=== PATIENT | female | born 1975 | race Caucasian/White ===

== ENCOUNTER 2022-06-11 06:08 | Inpatient (IN) | payer SELFPAY ==
[2022-06-11] MEDS ORDERED: Morphine 4 MG/ML VIAL ONE ×3 (06:50→18:50)
[2022-06-11] MEDS ORDERED: Ondansetron PF 4 MG/2 ML Vial ONE (06:51)
[2022-06-11 07:07] LABS: #Basophils 0.1 10x3/uL (0.0-0.2); #Monocytes 0.6 10x3/uL (0.0-1.1); #Neutrophils 12.5 10x3/uL (1.5-8.4); %Basophils 0.5 % (0.0-2.0); %Eosinophils 0.1 % (0.0-6.0); %Lymphocytes 7.6 % (18.0-47.0); %Monocytes 4.5 % (0.0-10.0); Hemoglobin 15.8 g/dL (12.0-15.5); Mean Corpuscular HGB CONC 35.3 g/dL (32.0-36.0); Mean Corpuscular Hemoglobin 36.1 pg (27.0-33.0); Mean Corpuscular Volume 102.1 fl (81.6-98.3); Mean Platelet Volume 9.1 fl (7.4-10.4); Platelet Count 347 10x3/uL (150-450); RBC Distribution Width 12.8 % (11.5-14.5); Red Blood Cell (RBC) Count 4.38 10x6/uL (3.90-5.03); White Blood Cell (WBC) Count 14.4 10x3/uL (3.5-10.5)
[2022-06-11 07:21] LABS: ALT (SGPT) 26 U/L (8-55); AST (SGOT) 31 U/L (5-34); Albumin 4.3 g/dL (3.5-5.0); Alkaline Phosphatase 101 U/L (40-110); Anion Gap 20 mmol/L (10-20); BUN (Urea Nitrogen) 9 mg/dL (7.0-18.7); Bilirubin, Total 0.9 mg/dL (0.2-1.2); Calc. Creatinine Clearance 0 mL/min (70-130); Calcium 9.2 mg/dL (7.8-10.44); Carbon Dioxide 19 mmol/L (22-29); Chloride 99 mmol/L (98-107); Estimated GFR 76; Globulin 3.1 g/dL (2.4-3.5); Glucose 141 mg/dL (70-105); Lipase 221 U/L (8-78); Potassium 3.6 mmol/L (3.5-5.1); Protein, Total 7.4 g/dL (6.0-8.3); Sodium 134 mmol/L (136-145)
[2022-06-11] MEDS ORDERED: Piperacillin/Tazobactam 4.5 GM VIAL ONE (08:06)
[2022-06-11 09:18] LABS: Bilirubin Neg (Negative); Blood, Urine 25 (Negative); Clarity Clear (Clear); Glucose, Urine (Dipstick) Normal (Negative); Ketone, Urine 50 mg/dL (Negative); Leukocyte 25 (Negative); Nitrite Negative (Negative); Protein, Urine (Dipstick) 15 mg/dl (Neg-Trace); Specific Gravity, Urine 1.005 (1.005-1.030)
[2022-06-11 09:29] LABS: Bacteria/HPF 1+ HPF (None Seen); Squamous Epithelial 0-3 HPF (0-3); WBC/HPF 0-3 HPF (0-3)
[2022-06-11] MEDS ORDERED: Iopamidol 300 61% 100 ML VIAL FS ONE (14:29)
[2022-06-11] MEDS ORDERED: Morphine 4 MG/ML VIAL SLOW IVP PRN (18:32)
[2022-06-11] MEDS ORDERED: Morphine 2 MG/ML VIAL SLOW IVP PRN (18:32)
[2022-06-11] MEDS ORDERED: Nicotine 21 MG PATCH TD PRN (19:10)
[2022-06-11] MEDS ORDERED: Acetaminophen 650 MG Suppository PR PRN (19:11)
[2022-06-11] MEDS ORDERED: Ondansetron ODT 4 MG TAB PO PRN (19:11)
[2022-06-11] MEDS ORDERED: Acetaminophen 325 MG TAB PO PRN (19:11)
[2022-06-11] MEDS ORDERED: Ondansetron PF 4 MG/2 ML Vial IVP PRN (19:11)
[2022-06-11] MEDS ORDERED: Electrolyte Replacement Protocol 1 EACH FS PRN (19:15)
[2022-06-11] MEDS ORDERED: Piperacillin/Tazobactam 4.5 GM in Sodium Chloride 0.9% 100 ML IVPB SCH (22:00)
[2022-06-11] MEDS ORDERED: Famotidine/PF 20 mg/2ml Vial SLOW IVP SCH (22:15)
[2022-06-11] MEDS ORDERED: Piperacillin/Tazobactam 3.375 GM in Sodium Chloride 0.9% 100 ML IVPB SCH (23:00)
[2022-06-11] MEDS ORDERED: Famotidine/PF 20 mg/2ml Vial ONE (23:30)
[2022-06-12] MEDS ORDERED: Piperacillin/Tazobactam 3.375 GM VIAL ONE ×2 (00:59→04:38)
[2022-06-12] MEDS: Sodium Chloride 0.9% 1,000 ML IV SCH ×2 (01:50→06:30)
[2022-06-12] MEDS ORDERED: Piperacillin/Tazobactam 3.375 GM in Sodium Chloride 0.9% 100 ML IVPB SCH ×2 (03:00→05:00)
[2022-06-12] MEDS ORDERED: Morphine 4 MG/ML VIAL ONE ×2 (03:55→09:27)
[2022-06-12 04:40] LABS: #Eosinphils 0.1 10x3/uL (0.0-0.5); #Monocytes 0.8 10x3/uL (0.0-1.1); #Neutrophils 4.2 10x3/uL (1.5-8.4); %Basophils 0.6 % (0.0-2.0); %Eosinophils 0.9 % (0.0-6.0); %Lymphocytes 21.1 % (18.0-47.0); %Monocytes 11.7 % (0.0-10.0); %Neutrophils 65.4 % (40.0-75.0); Hemoglobin 12.9 g/dL (12.0-15.5); Mean Corpuscular HGB CONC 34.4 g/dL (32.0-36.0); Mean Corpuscular Hemoglobin 35.6 pg (27.0-33.0); Mean Corpuscular Volume 103.6 fl (81.6-98.3); Mean Platelet Volume 9.2 fl (7.4-10.4); Platelet Count 258 10x3/uL (150-450); RBC Distribution Width 12.6 % (11.5-14.5); Red Blood Cell (RBC) Count 3.62 10x6/uL (3.90-5.03); White Blood Cell (WBC) Count 6.5 10x3/uL (3.5-10.5)
[2022-06-12 04:51] LABS: ALT (SGPT) 15 U/L (8-55); AST (SGOT) 15 U/L (5-34); Albumin 3.4 g/dL (3.5-5.0); Alkaline Phosphatase 61 U/L (40-110); Anion Gap 13 mmol/L (10-20); BUN (Urea Nitrogen) 9 mg/dL (7.0-18.7); Bilirubin, Total 0.9 mg/dL (0.2-1.2); Calc. Creatinine Clearance 0 mL/min (70-130); Calcium 8.1 mg/dL (7.8-10.44); Carbon Dioxide 22 mmol/L (22-29); Chloride 102 mmol/L (98-107); Estimated GFR 101; Globulin 2.4 g/dL (2.4-3.5); Glucose 100 mg/dL (70-105); Magnesium 1.7 mg/dL (1.6-2.6); Protein, Total 5.8 g/dL (6.0-8.3); Sodium 133 mmol/L (136-145)
[2022-06-12 05:04] LABS: Lipase Less than 4 U/L (8-78)
[2022-06-12] MEDS ORDERED: Magnesium 2 GM/50 ML BAG (IN WATER) ONE (05:44)
[2022-06-12 05:47] LABS: Magnesium 1.7 mg/dL (1.6-2.6)
[2022-06-12] MEDS ORDERED: Magnesium 2 GM/50 ML(in water) 2 GM in Premix Bag 1 BAG IVPB SCH (06:00)
[2022-06-12 07:16] VITALS: TEMP 98.1; BMI 28.6
[2022-06-12] MEDS ORDERED: Nicotine 14 MG PATCH TD PRN (08:12)
[2022-06-12] MEDS ORDERED: Dextrose 5%-Lactated Ringers 1,000 ML IV SCH (08:15)
[2022-06-12] MEDS ORDERED: PHOS-NAK 1 PKT PACK PO SCH (09:00)
[2022-06-12] MEDS ORDERED: Pantoprazole 40 MG VIAL IVP SCH (09:00)
[2022-06-12] MEDS ORDERED: Famotidine/PF 20 mg/2ml Vial SLOW IVP SCH (09:00)
[2022-06-12] MEDS ORDERED: Pantoprazole 40 MG VIAL ONE (09:27)
[2022-06-12] MEDS ORDERED: Ondansetron PF 4 MG/2 ML Vial ONE (09:27)
[2022-06-12] MEDS ORDERED: Potassium Phosphate 30 MMOL in Sodium Chloride 0.9% 250 ML 250 ML IVPB SCH (09:30)
[2022-06-12 13:26] LABS: Hemoglobin A1c 4.8 % (4.0-6.0)
== END 2022-06-12 10:25 | disposition short-term general hospital (02) | DRG 389 ==
LOC: CSHERS 06:08 → CSHERHOLD 07:30 → CSHERS 06-12 01:45
PROVIDERS: ADMIT Student in an Organized Health Care Education/Training Program; ATTEND Internal Medicine
DX: K56.609 Unspecified intestinal obstruction, unspecified as to partial versus complete obstruction (principal); K57.32 Diverticulitis of large intestine without perforation or abscess without bleeding; F17.210 Nicotine dependence, cigarettes, uncomplicated; Z80.3 Family history of malignant neoplasm of breast; E86.0 Dehydration; E83.42 Hypomagnesemia; E83.39 Other disorders of phosphorus metabolism; K76.0 Fatty (change of) liver, not elsewhere classified
CPT/HCPCS: 36415; 74177; 76705; 80053; 81003; 81015; 82378; 83036; 83605; 83690; 83735; 84100; 85025; 87040; 87086; 94760; 94762; C9113; J2270; J2405; J2543; J3475; J3490; J7050; Q0162; Q9967; S0028

== ENCOUNTER 2023-02-24 12:51 | Outpatient (CLI) | payer OTHER | END 2023-02-24 12:52 | disposition home or self-care (01) | LOC: CSHRAD 12:51 | PROVIDERS: ATTEND Internal Medicine Hematology & Oncology | DX: Z01.818 Encounter for other preprocedural examination (principal); C18.3 Malignant neoplasm of hepatic flexure; D50.0 Iron deficiency anemia secondary to blood loss (chronic) | CPT/HCPCS: 93005; 93010 ==

== ENCOUNTER 2023-03-15 23:11 | Inpatient (IN) | payer MEDICAID, OTHER ==
[~2023-03-15 23:11] MED LIST: Iopamidol 300 61% 100 ML VIAL FS ONE
[2023-03-15] MEDS ORDERED: Ondansetron PF 4 MG/2 ML Vial ONE (23:32)
[2023-03-15] MEDS ORDERED: Morphine 4 MG/ML VIAL ONE (23:32)
[2023-03-15 23:52] LABS: Actual Bicarbonate (HCO3v) 20.3 mEq/L (22-28); Analyzer IN Cardio CS ER; Base Excess 0.2 mEq/L (-2 - +2); Calcium, Ionized (venous) 0.99 mmol/L (1.16-1.32); Chloride (VBG) 102 mmol/L (98-106); Hematocrit-VBG 40 % (36.0-47.0); Hemoglobin (Hb) 13.5 g/dL (11.7-16.0); Puncture Site Other Site; RapidComm Collect By LAB; Sodium 133 mmol/L (133-146); pH (venous) 7.577 (7.32-7.43)
[2023-03-15 23:54] LABS: Hematocrit 33.5 % (34.9-44.5); Hemoglobin 12.1 g/dL (12.0-15.5); Mean Corpuscular HGB CONC 36.1 g/dL (32.0-36.0); Mean Corpuscular Hemoglobin 36.6 pg (27.0-33.0); Mean Corpuscular Volume 101.2 fl (81.6-98.3); Mean Platelet Volume 10.6 fl (7.4-10.4); Platelet Count 142 10x3/uL (150-450); RBC Distribution Width 13.9 % (11.5-14.5); Red Blood Cell (RBC) Count 3.31 10x6/uL (3.90-5.03); White Blood Cell (WBC) Count 29.6 10x3/uL (3.5-10.5)
[2023-03-15 23:55] LABS: MDiff Complete? YES
[2023-03-16] MEDS ORDERED: Cefepime 2 GM VIAL ONE (00:08)
[2023-03-16 00:09] LABS: ALT (SGPT) 235 U/L (8-55); AST (SGOT) 370 U/L (5-34); Albumin 3.1 g/dL (3.5-5.0); Alkaline Phosphatase 1453 U/L (40-110); Anion Gap 17 mmol/L (10-20); BUN (Urea Nitrogen) 8 mg/dL (7.0-18.7); Calc. Creatinine Clearance 0 mL/min (70-130); Calcium 8.3 mg/dL (7.8-10.44); Carbon Dioxide 17 mmol/L (22-29); Chloride 103 mmol/L (98-107); Estimated GFR 108; Globulin 2.6 g/dL (2.4-3.5); Glucose 97 mg/dL (70-105); Magnesium 1.1 mg/dL (1.6-2.6); Potassium 2.9 mmol/L (3.5-5.1); Protein, Total 5.7 g/dL (6.0-8.3); Sodium 134 mmol/L (136-145)
[2023-03-16 00:44] LABS: Band 4 % (5-11); Lymphocytes 3 % (21-51); Monocytes 5 % (0-10); Neutrophil 88 % (42-75)
[2023-03-16 00:47] LABS: Anisocytosis SLIGHT = 6-15 cells (100X) (0-5/hpf); Hypochromia SLIGHT = 6-15 cells (100X) (0-5/hpf); Macrocytosis SLIGHT = 6-15 cells (100X) (0-5/hpf); Microcytosis SLIGHT = 6-15 cells (100X) (0-5/hpf); Platelet Adequacy Comment Appears Adequate; Vacuoles SLIGHT
[2023-03-16] MEDS ORDERED: Morphine 4 MG/ML VIAL ONE (00:53)
[2023-03-16 01:27] LABS: SARS-CoV-2 NAA Rapid Test Not Detected (NotDetected)
[2023-03-16] MEDS ORDERED: Metoclopramide HCl 10 MG (2 mL) VIAL IVP PRN (01:33)
[2023-03-16] MEDS ORDERED: Ondansetron ODT 4 MG TAB PO PRN (01:33)
[2023-03-16] MEDS ORDERED: Morphine 2 MG/ML VIAL SLOW IVP PRN (01:33)
[2023-03-16] MEDS ORDERED: HYDROcodone/Acetaminophen 5/325 mg Tablet PO PRN ×2 (01:33)
[2023-03-16] MEDS ORDERED: Ondansetron PF 4 MG/2 ML Vial IVP PRN (01:33)
[2023-03-16] MEDS ORDERED: Magnesium 2 GM/50 ML BAG (IN WATER) ONE (01:42)
[2023-03-16] MEDS ORDERED: Potassium Chloride 20 MEQ (100 mL) BAG ONE (01:43)
[2023-03-16] MEDS ORDERED: Vancomycin 1 GM in Sodium Chloride 0.9% 250 ML 250 ML IVPB SCH ×2 (02:00→16:00)
[2023-03-16 03:12] LABS: Bilirubin 1+ (Negative); Blood, Urine Negative (Negative); Glucose, Urine (Dipstick) Normal (Negative); Ketone, Urine Negative (Negative); Leukocyte 25 (Negative); Nitrite Negative (Negative); Protein, Urine (Dipstick) 30 mg/dl (Neg-Trace)
[2023-03-16] MEDS ORDERED: Pantoprazole 40 MG VIAL IVP SCH (03:15)
[2023-03-16 03:22] VITALS: BMI 22.4
[2023-03-16 03:24] LABS: Bacteria/HPF None Seen HPF (None Seen); CAUTI Indications for Culture Pelvic or flank pain; Clarity Clear (Clear); RBC/HPF 0-3 HPF (0-3); Squamous Epithelial 0-3 HPF (0-3); WBC/HPF 0-3 HPF (0-3)
[2023-03-16 03:25] LABS: Urine Culture Reflex No No
[2023-03-16] MEDS: Lactated Ringer's 1,000 ML IV SCH ×4 (03:48→22:00)
[2023-03-16] MEDS: Morphine 4 MG/ML VIAL SLOW IVP PRN ×6 (03:51→23:52)
[2023-03-16 04:35] LABS: Actual Bicarbonate (HCO3v) 23.5 mEq/L (22-28); Analyzer IN Cardio CS ICU; Base Excess 0.5 mEq/L (-2 - +2); Calcium, Ionized (venous) 1.09 mmol/L (1.16-1.32); Chloride (VBG) 102 mmol/L (98-106); Hematocrit-VBG 33 % (36.0-47.0); Hemoglobin (Hb) 11.3 g/dL (11.7-16.0); Potassium (VBG) 3.36 mmol/L (3.70-5.30); Puncture Site Other Site; RapidComm Collect By LAB; Sodium 132 mmol/L (133-146); pH (venous) 7.481 (7.32-7.43)
[2023-03-16 04:52] LABS: Lactic Acid 1.5 mmol/L (0.5-2.2)
[2023-03-16 04:57] LABS: Hematocrit 28.4 % (34.9-44.5); Hemoglobin 10.2 g/dL (12.0-15.5); Mean Corpuscular HGB CONC 35.9 g/dL (32.0-36.0); Mean Corpuscular Hemoglobin 35.5 pg (27.0-33.0); Mean Platelet Volume 10.7 fl (7.4-10.4); Platelet Count 136 10x3/uL (150-450); RBC Distribution Width 14.1 % (11.5-14.5); Red Blood Cell (RBC) Count 2.87 10x6/uL (3.90-5.03); White Blood Cell (WBC) Count 25.6 10x3/uL (3.5-10.5)
[2023-03-16 05:01] LABS: Phosphorus 2.2 mg/dL (2.3-4.7)
[2023-03-16 05:06] LABS: ALT (SGPT) 215 U/L (8-55); AST (SGOT) 310 U/L (5-34); Albumin 2.6 g/dL (3.5-5.0); Alkaline Phosphatase 1114 U/L (40-110); Anion Gap 12 mmol/L (10-20); BUN (Urea Nitrogen) 6 mg/dL (7.0-18.7); Bilirubin, Total 5.4 mg/dL (0.2-1.2); Calc. Creatinine Clearance 113 mL/min (70-130); Calcium 7.9 mg/dL (7.8-10.44); Carbon Dioxide 20 mmol/L (22-29); Chloride 104 mmol/L (98-107); Estimated GFR 111; Glucose 118 mg/dL (70-105); Potassium 3.4 mmol/L (3.5-5.1); Protein, Total 4.6 g/dL (6.0-8.3); Sodium 133 mmol/L (136-145)
[2023-03-16 05:33] LABS: MDiff Complete? YES
[2023-03-16 05:58] LABS: Band 12 % (5-11); Lymphocytes 5 % (21-51); Monocytes 1 % (0-10); Neutrophil 82 % (42-75)
[2023-03-16 06:01] LABS: Hypochromia SLIGHT = 6-15 cells (100X) (0-5/hpf); Macrocytosis SLIGHT = 6-15 cells (100X) (0-5/hpf); Microcytosis SLIGHT = 6-15 cells (100X) (0-5/hpf)
[2023-03-16 06:02] LABS: Platelet Adequacy Comment Appears Adequate
[2023-03-16] MEDS: Cefepime 2 GM in Sodium Chloride 0.9% 100 ML IVPB SCH ×3 (07:58→23:11)
[2023-03-16] MEDS ORDERED: Lactated Ringer's 1,000 ML IV SCH (09:00)
[2023-03-16] MEDS ORDERED: Acetaminophen 325 MG TAB PO SCH (09:00)
[2023-03-16] MEDS ORDERED: Enoxaparin 40 MG (0.4 mL) SYRINGE SC SCH (09:00)
[2023-03-16] MEDS ORDERED: Acetaminophen 325 MG TAB PO PRN (09:05)
[2023-03-16] MEDS ORDERED: Potassium Chloride 20 MEQ TAB PO SCH (09:15)
[2023-03-17 00:07] VITALS: BP 103/68; TEMP 97.6
[2023-03-17] MEDS ORDERED: Folic Acid 1 MG TAB PO SCH (09:00)
[2023-03-17] MEDS ORDERED: Multivitamin W/ Minerals 1 TAB PO SCH (09:00)
[2023-03-17] MEDS ORDERED: Thiamine 100 MG TAB PO SCH (09:00)
[2023-03-17] MEDS ORDERED: Pantoprazole 40 MG VIAL IVP SCH (09:00)
== END 2023-03-17 01:10 | disposition short-term general hospital (02) | DRG 871 ==
LOC: CSHERS 23:11 → CSHIMCU 03-16 01:14
PROVIDERS: ADMIT Family Medicine; ATTEND Internal Medicine
PROC: 4A133R1 Monitoring of Arterial Saturation, Peripheral, Percutaneous Approach (ICD-10-PCS; principal; 2023-03-16)
PROC: 3E03329 Introduction of Other Anti-infective into Peripheral Vein, Percutaneous Approach (ICD-10-PCS; 2023-03-16)
DX: A41.51 Sepsis due to Escherichia coli [E. coli] (principal); K83.1 Obstruction of bile duct; R65.21 Severe sepsis with septic shock; C78.7 Secondary malignant neoplasm of liver and intrahepatic bile duct; C18.9 Malignant neoplasm of colon, unspecified; F10.90 Alcohol use, unspecified, uncomplicated; F17.210 Nicotine dependence, cigarettes, uncomplicated; E87.6 Hypokalemia; E83.42 Hypomagnesemia; Z90.49 Acquired absence of other specified parts of digestive tract; Z98.890 Other specified postprocedural states; Z11.52 Encounter for screening for COVID-19
CPT/HCPCS: 36415; 71045; 71260; 74177; 76705; 80053; 81001; 82805; 83605; 83735; 84100; 84145; 85025; 87040; 87077; 87149; 87186; 93005; 93010; 94760; C9113; J0692; J2270; J2405; J3370; J3475; J3480; J3490; J7050; J7120; Q9967

== ENCOUNTER 2023-03-31 18:43 | Inpatient (IN) | payer MEDICAID, OTHER ==
[2023-03-31 19:24] LABS: #Neutrophils 5.1 10x3/uL (1.5-8.4); %Basophils 0.5 % (0.0-2.0); %Eosinophils 0.3 % (0.0-6.0); %Lymphocytes 17.4 % (18.0-47.0); %Monocytes 13.8 % (0.0-10.0); %Neutrophils 67.7 % (40.0-75.0); Hematocrit 30.7 % (34.9-44.5); Hemoglobin 10.8 g/dL (12.0-15.5); Mean Corpuscular HGB CONC 35.2 g/dL (32.0-36.0); Mean Corpuscular Hemoglobin 35.9 pg (27.0-33.0); Mean Platelet Volume 10.6 fl (7.4-10.4); Platelet Count 154 10x3/uL (150-450); RBC Distribution Width 15.5 % (11.5-14.5); Red Blood Cell (RBC) Count 3.01 10x6/uL (3.90-5.03); White Blood Cell (WBC) Count 7.5 10x3/uL (3.5-10.5)
[2023-03-31 19:32] LABS: ALT (SGPT) 102 U/L (8-55); AST (SGOT) 202 U/L (5-34); Alkaline Phosphatase 823 U/L (40-110); Anion Gap 17 mmol/L (10-20); BUN (Urea Nitrogen) 13 mg/dL (7.0-18.7); Bilirubin, Total 4.3 mg/dL (0.2-1.2); Calc. Creatinine Clearance 0 mL/min (70-130); Calcium 8.3 mg/dL (7.8-10.44); Carbon Dioxide 22 mmol/L (22-29); Chloride 99 mmol/L (98-107); Estimated GFR 114; Globulin 2.9 g/dL (2.4-3.5); Glucose 102 mg/dL (70-105); Magnesium 1.9 mg/dL (1.6-2.6); Potassium 3.6 mmol/L (3.5-5.1); Protein, Total 5.9 g/dL (6.0-8.3); Sodium 134 mmol/L (136-145)
[2023-03-31 19:44] LABS: Lipase Less than 4 U/L (8-78)
[2023-03-31] MEDS ORDERED: Morphine 4 MG/ML VIAL ONE (21:29)
[2023-03-31 22:11] VITALS: BMI 19.3
[2023-03-31] MEDS: Sodium Chloride 0.9% 1,000 ML IV SCH (22:30)
[2023-04-01] MEDS: Ondansetron PF 4 MG/2 ML Vial IVP PRN ×2 (00:30→16:26)
[2023-04-01] MEDS: Morphine 4 MG/ML VIAL SLOW IVP PRN ×4 (00:30→20:46)
[2023-04-01] MEDS ORDERED: Ondansetron ODT 4 MG TAB PO PRN (01:06)
[2023-04-01] MEDS ORDERED: Morphine 2 MG/ML VIAL SLOW IVP PRN (01:31)
[2023-04-01] MEDS: D5 1/2 NS w/20 mEq KCL 1,000 ML IV SCH (01:46)
[2023-04-01] MEDS: Enoxaparin 40 MG (0.4 mL) SYRINGE SC SCH (01:47)
[2023-04-01 04:36] LABS: #Eosinphils 0.1 10x3/uL (0.0-0.5); #Monocytes 0.9 10x3/uL (0.0-1.1); #Neutrophils 4.2 10x3/uL (1.5-8.4); %Basophils 0.6 % (0.0-2.0); %Eosinophils 1.2 % (0.0-6.0); %Lymphocytes 23.2 % (18.0-47.0); %Monocytes 13.3 % (0.0-10.0); %Neutrophils 61.4 % (40.0-75.0); Hematocrit 30.5 % (34.9-44.5); Hemoglobin 10.5 g/dL (12.0-15.5); Mean Corpuscular HGB CONC 34.4 g/dL (32.0-36.0); Mean Corpuscular Hemoglobin 35.7 pg (27.0-33.0); Mean Corpuscular Volume 103.7 fl (81.6-98.3); Mean Platelet Volume 10.5 fl (7.4-10.4); Platelet Count 144 10x3/uL (150-450); RBC Distribution Width 15.7 % (11.5-14.5); Red Blood Cell (RBC) Count 2.94 10x6/uL (3.90-5.03); White Blood Cell (WBC) Count 6.9 10x3/uL (3.5-10.5)
[2023-04-01 05:03] LABS: Anion Gap 13 mmol/L (10-20); BUN (Urea Nitrogen) 11 mg/dL (7.0-18.7); Calc. Creatinine Clearance 109 mL/min (70-130); Calcium 8.1 mg/dL (7.8-10.44); Carbon Dioxide 24 mmol/L (22-29); Chloride 103 mmol/L (98-107); Estimated GFR 114; Glucose 102 mg/dL (70-105); Magnesium 2.1 mg/dL (1.6-2.6); Potassium 4.4 mmol/L (3.5-5.1); Sodium 136 mmol/L (136-145)
[2023-04-01] MEDS: Famotidine 20 MG TAB PO SCH (06:17)
[2023-04-01] MEDS: Pantoprazole 40 MG VIAL IVP SCH (14:05)
[2023-04-01] MEDS: Ketorolac Tromethamine 30 MG (1 mL) VIAL IVP SCH (18:56)
[2023-04-02 04:33] LABS: ALT (SGPT) 116 U/L (8-55); AST (SGOT) 180 U/L (5-34); Albumin 2.8 g/dL (3.5-5.0); Alkaline Phosphatase 916 U/L (40-110); Anion Gap 14 mmol/L (10-20); BUN (Urea Nitrogen) 9 mg/dL (7.0-18.7); Bilirubin, Total 4.5 mg/dL (0.2-1.2); Calc. Creatinine Clearance 90 mL/min (70-130); Calcium 8.5 mg/dL (7.8-10.44); Carbon Dioxide 20 mmol/L (22-29); Chloride 103 mmol/L (98-107); Estimated GFR 109; Globulin 2.8 g/dL (2.4-3.5); Glucose 109 mg/dL (70-105); Potassium 4.4 mmol/L (3.5-5.1); Protein, Total 5.6 g/dL (6.0-8.3); Sodium 133 mmol/L (136-145)
[2023-04-02] MEDS: Enoxaparin 40 MG (0.4 mL) SYRINGE SC SCH (08:17)
[2023-04-02] MEDS: Pantoprazole 40 MG VIAL IVP SCH (08:18)
[2023-04-03 05:00] LABS: ALT (SGPT) 89 U/L (8-55); AST (SGOT) 143 U/L (5-34); Albumin 2.5 g/dL (3.5-5.0); Alkaline Phosphatase 717 U/L (40-110); Anion Gap 13 mmol/L (10-20); BUN (Urea Nitrogen) 10 mg/dL (7.0-18.7); Bilirubin, Total 3.8 mg/dL (0.2-1.2); Calc. Creatinine Clearance 101 mL/min (70-130); Calcium 7.9 mg/dL (7.8-10.44); Carbon Dioxide 19 mmol/L (22-29); Chloride 105 mmol/L (98-107); Estimated GFR 112; Globulin 2.4 g/dL (2.4-3.5); Glucose 107 mg/dL (70-105); Potassium 4.2 mmol/L (3.5-5.1); Protein, Total 4.9 g/dL (6.0-8.3); Sodium 133 mmol/L (136-145)
[2023-04-04 06:03] LABS: #Eosinphils 0.1 10x3/uL (0.0-0.5); #Neutrophils 6.1 10x3/uL (1.5-8.4); %Basophils 0.3 % (0.0-2.0); %Lymphocytes 15.1 % (18.0-47.0); %Monocytes 12.1 % (0.0-10.0); %Neutrophils 70.9 % (40.0-75.0); Hematocrit 31.7 % (34.9-44.5); Hemoglobin 10.4 g/dL (12.0-15.5); Mean Corpuscular HGB CONC 32.8 g/dL (32.0-36.0); Mean Corpuscular Hemoglobin 34.6 pg (27.0-33.0); Mean Corpuscular Volume 105.3 fl (81.6-98.3); Mean Platelet Volume 10.7 fl (7.4-10.4); Platelet Count 103 10x3/uL (150-450); Red Blood Cell (RBC) Count 3.01 10x6/uL (3.90-5.03); White Blood Cell (WBC) Count 8.6 10x3/uL (3.5-10.5)
[2023-04-04 06:10] LABS: ALT (SGPT) 114 U/L (8-55); AST (SGOT) 317 U/L (5-34); Albumin 2.3 g/dL (3.5-5.0); Alkaline Phosphatase 696 U/L (40-110); Anion Gap 11 mmol/L (10-20); BUN (Urea Nitrogen) 8 mg/dL (7.0-18.7); Bilirubin, Total 3.3 mg/dL (0.2-1.2); Calc. Creatinine Clearance 97 mL/min (70-130); Calcium 7.8 mg/dL (7.8-10.44); Carbon Dioxide 21 mmol/L (22-29); Chloride 103 mmol/L (98-107); Estimated GFR 111; Globulin 2.4 g/dL (2.4-3.5); Glucose 101 mg/dL (70-105); Magnesium 1.8 mg/dL (1.6-2.6); Potassium 4.4 mmol/L (3.5-5.1); Protein, Total 4.7 g/dL (6.0-8.3); Sodium 131 mmol/L (136-145)
[2023-04-04 06:23] LABS: Phosphorus 2.8 mg/dL (2.3-4.7)
[2023-04-04] MEDS: Sodium Chloride 0.9% 1,000 ML IV SCH (09:20)
[2023-04-05 05:50] LABS: #Monocytes 1.6 10x3/uL (0.0-1.1); #Neutrophils 9.8 10x3/uL (1.5-8.4); %Basophils 0.3 % (0.0-2.0); %Eosinophils 0.2 % (0.0-6.0); %Lymphocytes 10.2 % (18.0-47.0); %Monocytes 12.7 % (0.0-10.0); %Neutrophils 76.1 % (40.0-75.0); Hematocrit 31.4 % (34.9-44.5); Hemoglobin 10.5 g/dL (12.0-15.5); Mean Corpuscular HGB CONC 33.4 g/dL (32.0-36.0); Mean Corpuscular Hemoglobin 34.9 pg (27.0-33.0); Mean Corpuscular Volume 104.3 fl (81.6-98.3); Mean Platelet Volume 10.9 fl (7.4-10.4); Platelet Count 102 10x3/uL (150-450); RBC Distribution Width 16.1 % (11.5-14.5); Red Blood Cell (RBC) Count 3.01 10x6/uL (3.90-5.03); White Blood Cell (WBC) Count 12.8 10x3/uL (3.5-10.5)
[2023-04-05 05:54] LABS: ALT (SGPT) 120 U/L (8-55); AST (SGOT) 279 U/L (5-34); Albumin 2.2 g/dL (3.5-5.0); Alkaline Phosphatase 655 U/L (40-110); Anion Gap 13 mmol/L (10-20); BUN (Urea Nitrogen) 12 mg/dL (7.0-18.7); Calc. Creatinine Clearance 101 mL/min (70-130); Calcium 7.7 mg/dL (7.8-10.44); Carbon Dioxide 16 mmol/L (22-29); Chloride 106 mmol/L (98-107); Estimated GFR 112; Globulin 2.4 g/dL (2.4-3.5); Glucose 87 mg/dL (70-105); Potassium 4.3 mmol/L (3.5-5.1); Protein, Total 4.6 g/dL (6.0-8.3); Sodium 131 mmol/L (136-145)
[2023-04-05 06:23] LABS: Anisocytosis SLIGHT = 6-15 cells (100X) (0-5/hpf)
[2023-04-05 06:24] LABS: Macrocytosis SLIGHT = 6-15 cells (100X) (0-5/hpf); Microcytosis SLIGHT = 6-15 cells (100X) (0-5/hpf); Platelet Adequacy Comment Appears Adequate; Polychromasia SLIGHT = 2-3 cells (100X) (0-2/hpf)
[2023-04-06] MEDS: Morphine 4 MG/ML VIAL SLOW IVP PRN (11:44)
[2023-04-06] MEDS: Gabapentin 300 MG CAP PO SCH (20:34)
[2023-04-07 08:07] LABS: Hemoglobin 9.8 g/dL (12.0-15.5); MDiff Complete? YES; Mean Corpuscular HGB CONC 32.7 g/dL (32.0-36.0); Mean Corpuscular Hemoglobin 34.8 pg (27.0-33.0); Mean Corpuscular Volume 106.4 fl (81.6-98.3); Platelet Count 110 10x3/uL (150-450); RBC Distribution Width 16.5 % (11.5-14.5); Red Blood Cell (RBC) Count 2.82 10x6/uL (3.90-5.03); White Blood Cell (WBC) Count 7.8 10x3/uL (3.5-10.5)
[2023-04-07 08:10] LABS: ALT (SGPT) 94 U/L (8-55); AST (SGOT) 156 U/L (5-34); Albumin 2.3 g/dL (3.5-5.0); Alkaline Phosphatase 526 U/L (40-110); Anion Gap 15 mmol/L (10-20); BUN (Urea Nitrogen) 14 mg/dL (7.0-18.7); Bilirubin, Total 5.5 mg/dL (0.2-1.2); Calc. Creatinine Clearance 111 mL/min (70-130); Calcium 7.7 mg/dL (7.8-10.44); Carbon Dioxide 17 mmol/L (22-29); Chloride 108 mmol/L (98-107); Estimated GFR 114; Globulin 2.5 g/dL (2.4-3.5); Glucose 89 mg/dL (70-105); Magnesium 1.9 mg/dL (1.6-2.6); Phosphorus 2.5 mg/dL (2.3-4.7); Potassium 4.1 mmol/L (3.5-5.1); Protein, Total 4.8 g/dL (6.0-8.3); Sodium 136 mmol/L (136-145)
[2023-04-07 09:03] LABS: Band 6 % (5-11); Eosinophils 1 % (0-10); Lymphocytes 14 % (21-51); Monocytes 8 % (0-10); Neutrophil 71 % (42-75)
[2023-04-07 09:05] LABS: Anisocytosis SLIGHT = 6-15 cells (100X) (0-5/hpf); Macrocytosis SLIGHT = 6-15 cells (100X) (0-5/hpf); Platelet Adequacy Comment Appears Decreased
[2023-04-07 09:09] LABS: Mean Platelet Volume 10.5 fl (7.4-10.4)
[2023-04-07] MEDS: fentaNYL 50 mcg/hour Patch TD SCH (15:28)
[2023-04-08 04:25] LABS: Hematocrit 29.4 % (34.9-44.5); Hemoglobin 9.6 g/dL (12.0-15.5); Mean Corpuscular HGB CONC 32.7 g/dL (32.0-36.0); Mean Corpuscular Hemoglobin 34.7 pg (27.0-33.0); Mean Corpuscular Volume 106.1 fl (81.6-98.3); Mean Platelet Volume 10.5 fl (7.4-10.4); Platelet Count 114 10x3/uL (150-450); RBC Distribution Width 16.4 % (11.5-14.5); Red Blood Cell (RBC) Count 2.77 10x6/uL (3.90-5.03)
[2023-04-08 04:29] LABS: Anion Gap 16 mmol/L (10-20); BUN (Urea Nitrogen) 14 mg/dL (7.0-18.7); Calc. Creatinine Clearance 115 mL/min (70-130); Calcium 7.7 mg/dL (7.8-10.44); Carbon Dioxide 18 mmol/L (22-29); Chloride 110 mmol/L (98-107); Estimated GFR 115; Glucose 86 mg/dL (70-105); Sodium 140 mmol/L (136-145)
[2023-04-08 04:54] LABS: MDiff Complete? YES
[2023-04-08 04:56] LABS: Anisocytosis SLIGHT = 6-15 cells (100X) (0-5/hpf); Platelet Adequacy Comment Appears Decreased
[2023-04-08 04:57] LABS: Macrocytosis SLIGHT = 6-15 cells (100X) (0-5/hpf); Microcytosis SLIGHT = 6-15 cells (100X) (0-5/hpf)
[2023-04-08 05:07] LABS: Band 10 % (5-11); Lymphocytes 14 % (21-51); Monocytes 8 % (0-10); Neutrophil 68 % (42-75)
[2023-04-08] MEDS ORDERED: Sodium Chloride 0.9% 500 ML IVPB SCH (11:00)
[2023-04-08] MEDS ORDERED: Bupivacaine PF 0.5% 30 ML VIAL ONE (13:38)
[2023-04-08] MEDS ORDERED: Midazolam HCl 2 mg/2 ml Vial ONE (13:40)
[2023-04-08] MEDS ORDERED: KETAMINE 100 MG/ML (5ML VIAL) ONE (13:40)
[2023-04-08] MEDS ORDERED: Dexmedetomidine 200 MCG/2 ML VIAL ONE (13:41)
[2023-04-08] MEDS ORDERED: Sodium Chloride 0.9% 10 ML ONE (13:46)
[2023-04-09] MEDS: Lorazepam 2 MG/ML VIAL SLOW IVP SCH (02:59)
[2023-04-09 08:39] VITALS: BP 140/94
[2023-04-09 12:16] VITALS: TEMP 98.9
[2023-04-09] MEDS: Lactated Ringer's 1,000 ML IV SCH (12:16)
== END 2023-04-09 13:11 | disposition hospice, inpatient (51) | DRG 375 ==
LOC: CSHERS 18:43 → CSHTELE 21:02 → OBSVTOIN 04-02 12:42
PROVIDERS: ADMIT Family Medicine; ATTEND Hospitalist
PROC: 0DH63UZ Insertion of Feeding Device into Stomach, Percutaneous Approach (ICD-10-PCS; principal; 2023-04-08)
PROC: 3E0G76Z Introduction of Nutritional Substance into Upper GI, Via Natural or Artificial Opening (ICD-10-PCS; 2023-04-08)
DX: C18.9 Malignant neoplasm of colon, unspecified (principal); C78.00 Secondary malignant neoplasm of unspecified lung; C78.7 Secondary malignant neoplasm of liver and intrahepatic bile duct; K56.601 Complete intestinal obstruction, unspecified as to cause; Z66 Do not resuscitate; Z51.5 Encounter for palliative care; D53.9 Nutritional anemia, unspecified; Z88.5 Allergy status to narcotic agent; Z90.49 Acquired absence of other specified parts of digestive tract; Z98.890 Other specified postprocedural states; Z87.891 Personal history of nicotine dependence
CPT/HCPCS: 36415; 71045; 74018; 74177; 80048; 80053; 83690; 83735; 84100; 85025; 93005; 93010; 96372; 96374; 96375; 96376; B4087; C9113; G0378; J0665; J1650; J1885; J2060; J2250; J2270; J2405; J3480; J7050; Q9967